=== PATIENT | male | born 1950 ===

== ENCOUNTER 2021-04-12 08:10 | Outpatient (CLI) | payer OTHER | END 2021-04-12 11:03 | disposition home or self-care (01) | LOC: SONOGRAMA 08:10 | PROVIDERS: ATTEND Pathology Anatomic Pathology & Clinical Pathology | DX: C77.0 Secondary and unspecified malignant neoplasm of lymph nodes of head, face and neck (principal) ==

== ENCOUNTER 2022-02-07 08:46 | Outpatient (CLI) | payer OTHER | END 2022-02-07 08:51 | disposition home or self-care (01) | LOC: SONOGRAMA 08:46 | PROVIDERS: ATTEND Pathology Anatomic Pathology & Clinical Pathology | DX: D09.8 Carcinoma in situ of other specified sites (principal); C77.0 Secondary and unspecified malignant neoplasm of lymph nodes of head, face and neck ==